=== PATIENT | female | born 1995 | race African-American/Black ===

== ENCOUNTER 2019-03-15 05:58 | Inpatient (IN) ==
[2019-03-15 06:19] LABS: URINE SOURCE VOIDED
[2019-03-15 06:27] LABS: BILIRUBIN URINE NEGATIVE (NEGATIVE); BLOOD URINE 1+ (NEGATIVE); CLARITY CLEAR (CLEAR); COLOR YELLOW; GLUCOSE URINE NEGATIVE (NEGATIVE); KETONE URINE TRACE mg/dL (NEGATIVE); LEUKOCYTES URINE 1+ (NEGATIVE); NITRITE URINE NEGATIVE (NEGATIVE); PH URINE 6.5; PROTEIN URINE TRACE mg/dL (NEGATIVE); SP GRAVITY URINE 1.015; UROBILINOGEN URINE 1 mg/dL
[2019-03-15] MEDS ORDERED: ZOFRAN IV PRN (07:43)
[2019-03-15] MEDS ORDERED: TYLENOL PO PRN (07:43)
[2019-03-15] MEDS ORDERED: PEPCID PO ONE (07:43)
[2019-03-15] MEDS ORDERED: REGLAN PO ONE (07:43)
[2019-03-15] MEDS ORDERED: PEPCID IV PRN (07:43)
[2019-03-15] MEDS ORDERED: STADOL IV PRN (07:43)
[2019-03-15] MEDS ORDERED: SODIUM CHLORIDE 0.9% INJ SCH (07:45)
[2019-03-15] MEDS ORDERED: PITOCIN 30 UNITS/NS 30 UNIT/500 ML IV.SOLN IV SCH ×2 (07:45→14:45)
[2019-03-15] MEDS ORDERED: AMPICILLIN 2 GM/NS 2 GM/100 ML IVPB IV ONE (08:00)
[2019-03-15] MEDS: LR 1,000 ML IV SCH ×2 (08:05→09:44)
[2019-03-15 08:29] LABS: BASO# 0.02 X1000 (0.0-0.2); BASO% 0.2 % (0.0-0.8); EOS# 0.23 X1000 (0.0-0.7); EOS% 2.3 % (0.0-10.0); IMM GRAN# 0.11 X1000 (0.0-0.04); IMM GRAN% 1.1 % (0.0-0.5); LYMPH# 2.02 X1000 (1.2-3.4); LYMPH% 19.8 % (20.5-51.1); MCH 28.9 PG (27-31); MCHC 33.3 g/dL (33-37); MCV 86.7 FL (81-99); MONO# 1.13 X1000 (0.11-0.59); MONO% 11.1 % (1.7-9.3); NEUT% 65.5 % (42.2-75.2); PLT 303 X1000 (130-400); RBC 3.46 XMIL (4.2-5.4); RDW 12.5 % (11.5-14.5); WBC 10.21 X1000 (4.8-10.8)
[2019-03-15] MEDS ORDERED: BICITRA PO ONE (08:30)
[2019-03-15] MEDS ORDERED: REGLAN IV ONE (08:30)
[2019-03-15] MEDS ORDERED: FENTANYL-BUPIV-NS 2 MCG-0.1% 250 ML EPIDURAL PRN (09:07)
[2019-03-15] MEDS ORDERED: FENTANYL IV ONE (09:15)
[2019-03-15 09:17] LABS: UR AMPHETAMINES QUAL NONE DETECTED (NONE DETECT); UR BARBITUATES QUAL NONE DETECTED (NONE DETECT); UR BENZODIAZEPIN QUAL NONE DETECTED (NONE DETECT); UR CANNABINOIDS QUAL NONE DETECTED (NONE DETECT); UR COCAINE QUAL NONE DETECTED (NONE DETECT); UR METHADONE QUAL NONE DETECTED (NONE DETECT); UR METHAMPHETAMINE QUAL NONE DETECTED (NONE DETECT); UR OPIATES QUAL NONE DETECTED (NONE DETECT); UR OXYCODONE QUAL NONE DETECTED (NONE DETECT); UR PCP QUAL NONE DETECTED (NONE DETECT); UR PROPOXYPHENE QUAL NONE DETECTED (NONE DETECT); UR TCA QUAL NONE DETECTED (NONE DETECT)
--- NOTE | 2019-03-15 09:31 | HISTORY AND PHYSICAL ---
HISTORY OF PRESENT ILLNESS: The patient 23-year-old black female, , at 37 and 3/7 weeks gestation. This is by LMP and confirmed by 2nd trimester ultrasound. She presents with complaints of spontaneous rupture of membranes at 0530 this morning. The due date based on LMP and 2nd trimester ultrasound is 04/02/2019. care has been unremarkable to date. PAST MEDICAL HISTORY: Unremarkable. PAST SURGICAL HISTORY: Tonsillectomy. PAST OB HISTORY: . She has delivered 6 pounds 10 ounces in [place] with her first child. PHYSICS TUTOR HISTORY: Menarche at age 14. REVIEW OF SYSTEMS: All systems reviewed and noncontributory. FAMILY HISTORY: Noncontributory. SOCIAL HISTORY: Tobacco use: None. Alcohol use: None. MEDICATIONS: vitamins. ALLERGIES: No known drug allergies. PHYSICAL EXAMINATION: VITAL SIGNS: Height 5 feet 4 inches. Weight 140 pounds. Temperature 97.4 degrees. Blood pressure 110/64. Pulse of 81. Respirations 18. heart rate in the 130s with positive accelerations. HEENT: Pupils equal, round, reactive to light and accommodation. Extraocular movements intact. Oropharynx clear. NECK: Supple, no thyromegaly. LUNGS: Clear to auscultation. HEART: Regular rate and rhythm. ABDOMEN: Gravid, nontender. : Cervix was dilated 3 cm, 50% effaced, -2 station, and grossly ruptured. EXTREMITIES: No clubbing, cyanosis, or edema noted. NEUROLOGIC: Cranial nerves 2-12 grossly intact. Motor 5/5. ASSESSMENT AND PLAN: Intrauterine at 37 and 3/7 weeks gestation with spontaneous rupture of membranes. Patient will be admitted and add Pitocin to augment labor. Patient with a known group B strep status. We will treat with prophylactic antibiotic therapy. The patient also would like an epidural and we will place one as soon as possible. Anticipate a vaginal delivery. cc: Sundar Fulton III, MD
[2019-03-15] MEDS ORDERED: AMPICILLIN 1 GM/NS 1 GM/50 ML IVPB IV SCH (12:00)
[2019-03-15] MEDS ORDERED: MINERAL OIL PO PRN (14:45)
[2019-03-15] MEDS ORDERED: NORCO-5 PO PRN (14:45)
[2019-03-15] MEDS ORDERED: ATARAX PO PRN (14:45)
[2019-03-15] MEDS ORDERED: HYDROXYZINE IM PRN (14:45)
[2019-03-15] MEDS ORDERED: M-M-R II VACCINE SUBQ ONE (14:45)
[2019-03-15] MEDS ORDERED: XYLOCAINE-MPF 1% INJ PRN (14:45)
[2019-03-15] MEDS ORDERED: AMBIEN PO PRN (14:45)
[2019-03-15] MEDS ORDERED: BENADRYL PO PRN (14:45)
[2019-03-15] MEDS ORDERED: PITOCIN IM PRN (14:45)
[2019-03-15] MEDS ORDERED: CYTOTEC PO PRN (14:45)
[2019-03-15] MEDS ORDERED: NORCO-10 PO PRN (14:45)
[2019-03-15] MEDS ORDERED: PERI MEDS (DERMOPLAST/NUPERCAINAL/TUCKS) MISC PRN (14:45)
[2019-03-15] MEDS ORDERED: BENADRYL IV PRN (14:45)
[2019-03-15] MEDS ORDERED: BOOSTRIX VACCINE IM ONE (14:45)
[2019-03-15] MEDS ORDERED: PITOCIN 20 UNITS/NS 20 UNITS/1,000 ML IV.SOLN IV SCH (14:45)
--- NOTE | 2019-03-15 17:50 | OPERATIVE NOTE ---
PROCEDURE DATE: 03/15/2019 PROCEDURE: Vaginal delivery note. DESCRIPTION OF PROCEDURE: The patient progressed to complete pushing and had spontaneous vaginal delivery of a male , 6 pounds 10 ounces with Apgars of 9 and 10 at 14:12 on 03/15/2019 over periurethral lacerations. Cord blood samples were obtained at this time. Placenta was then delivered intact with 3 vessel cord. The periurethral lacerations were repaired with 3-0 Vicryl in a running fashion. ESTIMATED BLOOD LOSS: 150 mL. ANESTHESIA: Epidural. COUNTS: All counts were correct x2. cc: Sundar Fulton III, MD
[2019-03-15] MEDS: NEOSPORIN OINTMENT PACKET TOP PRN (18:41)
[2019-03-15] MEDS: PERICOLACE PO SCH (21:37)
[2019-03-16 05:24] LABS: BASO# 0.02 X1000 (0.0-0.2); BASO% 0.1 % (0.0-0.8); EOS# 0.24 X1000 (0.0-0.7); EOS% 1.8 % (0.0-10.0); HEMATOCRIT 25.5 % (37.0-47.0); HEMOGLOBIN 8.1 g/dL (12.0-16.0); IMM GRAN# 0.09 X1000 (0.0-0.04); IMM GRAN% 0.7 % (0.0-0.5); LYMPH# 2.14 X1000 (1.2-3.4); LYMPH% 15.9 % (20.5-51.1); MCH 27.7 PG (27-31); MCHC 31.8 g/dL (33-37); MCV 87.3 FL (81-99); MONO# 1.53 X1000 (0.11-0.59); MONO% 11.4 % (1.7-9.3); MPV 9.2 FL (7.4-10.4); NEUT# 9.46 X1000 (1.4-6.5); NEUT% 70.1 % (42.2-75.2); PLT 267 X1000 (130-400); RBC 2.92 XMIL (4.2-5.4); RDW 12.4 % (11.5-14.5); WBC 13.48 X1000 (4.8-10.8)
[2019-03-16] MEDS: MOTRIN PO PRN ×2 (07:14→21:12)
--- NOTE | 2019-03-16 07:14 | OB/GYN PROGRESS NOTE ---
Progress Note OB - . OB Progress Note: Vital Signs - 24 hr 03/15/19 07:42 03/15/19 12:00 03/15/19 14:40 Temperature 97.8 F 96.8 F L 97.4 F L Pulse Rate 88 83 78 Respiratory Rate 18 18 18 Blood Pressure 102/67 108/78 121/71 Blood Pressure [Right Arm] 121/71 O2 Sat by Pulse Oximetry 99 100 100 03/15/19 14:50 03/15/19 15:00 03/15/19 15:10 Temperature Pulse Rate 77 75 79 Respiratory Rate 18 18 18 Blood Pressure Blood Pressure [Right Arm] 111/72 106/77 114/90 O2 Sat by Pulse Oximetry 100 100 100 03/15/19 15:20 03/15/19 15:30 03/15/19 15:40 Temperature Pulse Rate 74 79 78 Respiratory Rate 18 18 18 Blood Pressure 118/76 Blood Pressure [Right Arm] 115/78 115/78 118/76 O2 Sat by Pulse Oximetry 100 100 100 03/15/19 16:00 03/15/19 20:00 03/16/19 05:48 Temperature 97.5 F L 97.5 F L 97.1 F L Pulse Rate 75 101 H 74 Respiratory Rate 16 18 18 Blood Pressure 111/71 111/61 94/55 Blood Pressure [Right Arm] O2 Sat by Pulse Oximetry 99 100 Laboratory Results - last 24 hr 03/15/19 03/15/19 03/15/19 06:00 07:35 07:35 WBC 10.21 RBC 3.46 L Hgb 10.0 L Hct 30.0 L MCV 86.7 MCH 28.9 MCHC 33.3 RDW Std Deviation 12.5 Plt Count 303 MPV 10.0 Immature Gran % (Auto) 1.1 H Neut % (Auto) 65.5 Lymph % (Auto) 19.8 L [place] % (Auto) 11.1 H Eos % (Auto) 2.3 Baso % (Auto) 0.2 Immature Gran # (Auto) 0.11 H Neut # (Auto) 6.70 H Lymph # (Auto) 2.02 [place] # (Auto) 1.13 H Eos # (Auto) 0.23 Baso # (Auto) 0.02 Urine Opiates Screen NONE DETECTED Ur Oxycodone Screen NONE DETECTED Urine Methadone Screen NONE DETECTED U Propoxyphene Qual NONE DETECTED Ur Barbituates Screen NONE DETECTED Ur Tricyclics Screen NONE DETECTED Ur Phencyclidine Scrn NONE DETECTED Ur Amphetamines Screen NONE DETECTED U Methamphetamines Scrn NONE DETECTED U Benzodiazepines Scrn NONE DETECTED Urine Cocaine Screen NONE DETECTED U Cannabinoids Screen NONE DETECTED RPR NON-REACTIVE 03/16/19 05:02 WBC 13.48 H RBC 2.92 L Hgb 8.1 L D Hct 25.5 L MCV 87.3 MCH 27.7 MCHC 31.8 L RDW Std Deviation 12.4 Plt Count 267 MPV 9.2 Immature Gran % (Auto) 0.7 H Neut % (Auto) 70.1 Lymph % (Auto) 15.9 L [place] % (Auto) 11.4 H Eos % (Auto) 1.8 Baso % (Auto) 0.1 Immature Gran # (Auto) 0.09 H Neut # (Auto) 9.46 H Lymph # (Auto) 2.14 [place] # (Auto) 1.53 H Eos # (Auto) 0.24 Baso # (Auto) 0.02 Urine Opiates Screen Ur Oxycodone Screen Urine Methadone Screen U Propoxyphene Qual Ur Barbituates Screen Ur Tricyclics Screen Ur Phencyclidine Scrn Ur Amphetamines Screen U Methamphetamines Scrn U Benzodiazepines Scrn Urine Cocaine Screen U Cannabinoids Screen RPR PP1 no cx s/nt -cce hgb 8.1 breast home in am discussed ambulation
[2019-03-16] MEDS: NEOSPORIN OINTMENT PACKET TOP PRN (08:20)
[2019-03-16] MEDS: FERROUS SULFATE PO SCH (08:20)
[2019-03-16] MEDS: PERICOLACE PO SCH (21:12)
--- NOTE | 2019-03-17 08:53 | OB/GYN PROGRESS NOTE ---
Progress Note OB - . OB Progress Note: Vital Signs - 24 hr 03/16/19 12:00 03/16/19 16:00 03/16/19 20:40 Temperature 97.4 F L 98.1 F 97.8 F Pulse Rate 79 76 89 Respiratory Rate 16 16 16 Blood Pressure 106/56 110/69 117/56 O2 Sat by Pulse Oximetry 100 100 97 03/17/19 00:10 Temperature 97.6 F Pulse Rate 80 Respiratory Rate 18 Blood Pressure 102/52 O2 Sat by Pulse Oximetry 98 Shruthi is doing well PPD # 2 and ready to go home. No c/o. Lochia minimal. NO CP or SOB. No lightheadedness or dizziness. No Headache. No difficulty ambulating or urinating. No perineal c/o. Patient is and states going well. No depression or anxiety issues on asking. No F/C - GBS +, given ABX prophylaxis in labor. PE: A&O x 3 in NAD CV- RRR Lungs - CTA bilaterally Abd- Soft, ND/NT and no rebound or guarding. Very small umbilical hernia noted - no pain, no erythema or warmth. No masses and no incarceration or strangulation. Uterus firm below umbilicus. Pelvic - deferred Ext - No calf pain and no edema. left upper arm visualized - area of bite skin sloughing middle area approximately 2.5 cm. No signs of infection. No erythema or induration. No pus or drainage. ASSESSMENT: G2 now P2 S/P uncomplicated . S/P post SROM with augmentation by pitocin at 37+3 weeks. DISCHARGE NOTE. PLAN: 1. Doing well, stable - discharge to home. 2. Follow up with in [address] Lopez. [facility] does not have appointment scheduled yet. Discussed importance of follow up post . Discussed control and options for consideration at PP check. 3. Anemia pre-existing and secondary to normal blood loss with delivery. Hgb 8.1 post . Asymptomatic and ambulating without difficulty. Pulse 70's post . Discussed with patient FeSO4 325 mg po BID use for next month. 4. Breast feeding. Encouragement given for continued . Breast care discussed - lanolin, coconut oil, dried breast milk. Increase water intake. Continue PNV use daily. 5. Wound left upper arm - discussed keeping area clean and dry - no lotions or o intments. Signs and symptoms of infection discussed and to call or be seen. 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 No further action needed per notes reviewed. 6. Post depression risks and signs and symptoms discussed. Denies any issues at present time. Instructed patient to call and need to be evaluated if any depression issues. States understanding. 7. Discharge instructions discussed. NO driving for 7-10 days or until pain free. NO heavy lifting for 4-6 weeks - nothing heavier than baby. At 4 weeks can gradually increase lifting limits. NO sex and NOTHING in the vagina for 6 weeks discussed and stressed. States understanding. 8. Rx motrin 600mg po q 6 hours prn #30 written and given. Rx FeSO4 325 mg 1 po BID #60 written and given. 9. If ANY problems questions or concerns to call.
[2019-03-17] MEDS: FERROUS SULFATE PO SCH (08:58)
[2019-03-17 10:02] VITALS: BP 105/70
== END 2019-03-17 16:30 | disposition home or self-care (01) | DRG 807 ==
LOC: P.NBC 05:58 → P.LD 05:59
PROVIDERS: ADMIT Obstetrics & Gynecology; ATTEND Obstetrics & Gynecology